=== PATIENT | female | born 1975 | race Caucasian/White ===

== ENCOUNTER 2024-10-13 07:30 | Emergency (ER) | payer MEDICAID ==
[~2024-10-13] VITALS: Ht 172.7 cm; Wt 80.7 kg
[2024-10-13] MEDS ORDERED: LOSA25TA27 PO (07:44)
[2024-10-13] MEDS ORDERED: ERGO500040 PO (07:44)
[2024-10-13 08:02] LABS: BASOPHILS % (AUTO) 1.1 % (0.0-2.0); EOSINOPHILS # (AUTO) 0.1 K/uL (0.0-0.7); EOSINOPHILS % (AUTO) 2.7 % (0.0-7.0); HEMATOCRIT 29.5 % (31.2-41.9); HEMOGLOBIN 9.5 g/dL (10.9-14.3); LYMPHOCYTES # (AUTO) 1.2 K/uL (0.8-4.8); LYMPHOCYTES % (AUTO) 34.8 % (20.5-51.5); MEAN CORPUSCULAR HEMOGLOBIN 24.4 uug (24.7-32.8); MEAN CORPUSCULAR HGB CONC 32 g/dL (32.3-35.6); MEAN CORPUSCULAR VOLUME 76.2 fL (75.5-95.3); MONOCYTES # (AUTO) 0.3 K/uL (0.1-1.30); MONOCYTES % (AUTO) 8.2 % (0.0-11.0); NEUTROPHILS # (AUTO) 1.9 K/uL (1.8-8.9); NEUTROPHILS % (AUTO) 53.2 % (38.5-71.5); PLATELET COUNT (AUTO) 216 K/uL (179-408); RED BLOOD CELL COUNT(AUTO) 3.88 MIL/uL (3.63-4.92); RED CELL DISTRIBUTION WIDTH 17.9 % (12.3-17.7); WHITE BLOOD COUNT (AUTO) 3.5 K/uL (3.8-11.8)
[2024-10-13 08:06] LABS: DIFFERENTIAL COMMENT 1
[2024-10-13 08:22] LABS: CALCIUM 8.9 mg/dL (8.5-10.1); CARBON DIOXIDE 23 mmol/L (21-32); CHLORIDE 105 mmol/L (98-107); CREATININE 0.6 mg/dL (0.6-1.3); GLUCOSE 95 mg/dL (74-106); POTASSIUM 3.9 mmol/L (3.5-5.1); SODIUM SERUM 140 mmol/L (136-145); UREA NITROGEN, BLOOD 16 mg/dL (7-18)
[2024-10-13 08:28] LABS: ALANINE AMINOTRANSFERASE 26 U/L (14-59); ALBUMIN 3.4 g/dL (3.4-5.0); ALKALINE PHOSPHATASE 63 U/L (50-136); ASPARTATE AMINOTRANSFERASE 15 U/L (15-37); BILIRUBIN,DIRECT < 0.1 mg/dL (0.0-0.2); BILIRUBIN,TOTAL 0.3 mg/dL (0.2-1.0)
[2024-10-13] MEDS ORDERED: FAMO40TA7 PO (09:09)
[2024-10-13 09:40] VITALS: BP 139/78; O2SAT 99
== END 2024-10-13 09:41 | disposition home or self-care (01) ==
LOC: ER 07:30
DX: R07.2 Precordial pain (principal); I10 Essential (primary) hypertension; Z79.899 Other long term (current) drug therapy
CPT/HCPCS: 36415; 71045; 84484; 85025; 85730; A4606; A4663

== ENCOUNTER 2024-11-01 15:17 | Inpatient (IN) | payer MEDICAID ==
[~2024-11-01] VITALS: Ht 167.6 cm; Wt 89.8 kg
[~2024-11-01 15:17] MED LIST: ERGO500040 PO; FAMO40TA7 PO; LOSA25TA27 PO
[2024-11-01 16:21] LABS: PLATELET COUNT (AUTO) 526 K/uL (179-408); RED BLOOD CELL COUNT(AUTO) 3.52 MIL/uL (3.63-4.92); RED CELL DISTRIBUTION WIDTH 17.5 % (12.3-17.7); WHITE BLOOD COUNT (AUTO) 14.8 K/uL (3.8-11.8)
[2024-11-01 16:37] LABS: ASPARTATE AMINOTRANSFERASE 16 U/L (15-37); CREATININE 0.6 mg/dL (0.6-1.3); SODIUM SERUM 141 mmol/L (136-145); TOTAL PROTEIN, SERUM 7.1 g/dL (6.4-8.2); UREA NITROGEN, BLOOD 7 mg/dL (7-18)
[2024-11-01] MEDS ORDERED: SWABABLE VALVE TRANSFER SET EA MC ONE (17:01)
[2024-11-01] MEDS ORDERED: IV NORMAL SALINE 250 ML IV ONE (17:01)
[2024-11-01] MEDS ORDERED: IOHEXOL 300MG/ML 100 ML INFUS..BTL ONE (17:01)
[2024-11-01 17:54] LABS: *BILIRUBIN,URIN NEGATIVE (NEGATIVE); *CLARITY,URINE CLEAR (CLEAR); *COLOR,URINE YELLOW (YELLOW); *KETONES,URINE NEGATIVE (NEGATIVE); *PROTEIN,URINE NEGATIVE (NEGATIVE); *UROBILINOGEN,URINE 0.2 E.U./dl (NORMAL); LEUKOCYTE ESTERASE ,URINE NEGATIVE (NEGATIVE); NITRITE, URINE NEGATIVE (NEGATIVE); UGLUCOSE NEGATIVE (NEGATIVE)
[2024-11-01 17:56] LABS: *BLOOD, URINE NEGATIVE (NEGATIVE)
[2024-11-01 18:41] LABS: *URINE HCG, QUAL NEGATIVE (NEGATIVE)
[2024-11-01] MEDS: KETOROLAC TROMETHAMINE 15 MG INJ IVP ONE (21:52)
[2024-11-01] MEDS ORDERED: TEMAZEPAM 15 MG CAPSULE PO PRN (22:15)
[2024-11-01] MEDS ORDERED: PIPERACILLIN/TAZOBACTAM/D5W 100 ML IV ONE (23:09)
[2024-11-01] MEDS ORDERED: IV 0.9% SODIUM CHLORID+ 20 KCL 1,000 ML ONE (23:09)
[2024-11-01] MEDS: PIPERACILLIN SODIUM/TAZOBACTAM 3.375 G in IV DEXTROSE 5% 50 ML IV SCH (23:58)
[2024-11-02] VITALS (10 sets, daily range): BP systolic 99–117; BP diastolic 45–67; TEMP 98.1–99.5; O2SAT 95–100
[2024-11-02] MEDS: POTASSIUM CHLORIDE 20 MEQ in IV NS 1000 ML 1,000 ML IV PRN
[2024-11-02] MEDS: HYDROCODONE/APAP 5-325MG TABLET PO PRN (00:03)
[2024-11-02] MEDS ORDERED: VANCOMYCIN IV 1,250 MG in IV DEXTROSE 5% 250 ML IV SCH (06:00)
[2024-11-02] MEDS: PANTOPRAZOLE SODIUM 40 MG TABLET.DR PO SCH (06:00)
[2024-11-02] MEDS ORDERED: VANCOMYCIN IV 2,000 MG in IV DEXTROSE 5% 500 ML IV ONE (08:00)
[2024-11-02] MEDS: VANCOMYCIN IV 1,000 MG in IV DEXTROSE 5% 250 ML IV SCH (09:03)
[2024-11-02 09:32] LABS: PLATELET COUNT (AUTO) 416 K/uL (179-408); RED BLOOD CELL COUNT(AUTO) 2.88 MIL/uL (3.63-4.92); RED CELL DISTRIBUTION WIDTH 16.8 % (12.3-17.7); WHITE BLOOD COUNT (AUTO) 10.4 K/uL (3.8-11.8)
[2024-11-02 09:45] LABS: ASPARTATE AMINOTRANSFERASE 10.0 U/L (15-37); CREATININE 0.6 mg/dL (0.6-1.3); SODIUM SERUM 139.0 mmol/L (136-145); TOTAL PROTEIN, SERUM 5.6 g/dL (6.4-8.2); UREA NITROGEN, BLOOD 6.0 mg/dL (7-18)
[2024-11-02 09:59] LABS: IRON, SERUM 16.0 ug/dL (50-175)
[2024-11-02] MEDS ORDERED: CEPH500C2 PO (12:08)
[2024-11-02] MEDS ORDERED: IBUP-1957 PO (12:09)
[2024-11-02] MEDS ORDERED: ASCO500T23 PO (12:10)
[2024-11-02] MEDS ORDERED: FAMO40TA7 PO (12:10)
[2024-11-02] MEDS ORDERED: CYAN-51 PO (12:12)
[2024-11-02] MEDS ORDERED: MULT-1275 PO (12:13)
[2024-11-02] MEDS: ACETAMINOPHEN 325 MG TABLET PO PRN (15:41)
[2024-11-02] MEDS: PIPERACILLIN SODIUM/TAZOBACTAM 3.375 G in IV DEXTROSE 5% 50 ML IV SCH (22:31)
[2024-11-03 06:05] VITALS: BP 105/65; TEMP 97.9; O2SAT 98
[2024-11-03 08:55] LABS: PLATELET COUNT (AUTO) 518 K/uL (179-408); RED BLOOD CELL COUNT(AUTO) 3.47 MIL/uL (3.63-4.92); RED CELL DISTRIBUTION WIDTH 17.7 % (12.3-17.7); WHITE BLOOD COUNT (AUTO) 9.3 K/uL (3.8-11.8)
[2024-11-03 09:08] LABS: CREATININE 0.6 mg/dL (0.6-1.3); SODIUM SERUM 142.0 mmol/L (136-145); UREA NITROGEN, BLOOD 6.0 mg/dL (7-18)
[2024-11-03 11:16] VITALS: BP 112/69; TEMP 98.8; O2SAT 98
[2024-11-03] MEDS: PIPERACILLIN SODIUM/TAZOBACTAM 3.375 G in IV DEXTROSE 5% 50 ML IV SCH (12:09)
[2024-11-03 20:10] VITALS: BP 129/69; TEMP 98.5; O2SAT 96
[2024-11-04 04:00] VITALS: BP 112/68; TEMP 97.9; O2SAT 96
[2024-11-04 06:57] LABS: PLATELET COUNT (AUTO) 448 K/uL (179-408); RED BLOOD CELL COUNT(AUTO) 3.16 MIL/uL (3.63-4.92); RED CELL DISTRIBUTION WIDTH 18.1 % (12.3-17.7); WHITE BLOOD COUNT (AUTO) 7.3 K/uL (3.8-11.8)
[2024-11-04 07:14] LABS: CREATININE 0.6 mg/dL (0.6-1.3); SODIUM SERUM 140.0 mmol/L (136-145); UREA NITROGEN, BLOOD 6.0 mg/dL (7-18)
[2024-11-04] MEDS: ENSURE ENLIVE (VAN) 240 ML LIQUID PO SCH (09:11)
[2024-11-04 11:37] VITALS: BP 110/73; TEMP 98.6; O2SAT 98
[2024-11-04 15:50] VITALS: BP 121/76; TEMP 97.9; O2SAT 98
[2024-11-04 19:58] VITALS: BP 121/80; TEMP 98; O2SAT 98
[2024-11-04] MEDS: ONDANSETRON 4 MG/2 ML VIAL IV PRN (20:16)
[2024-11-05 05:07] VITALS: BP 132/75; TEMP 98.3; O2SAT 98
[2024-11-05 06:41] LABS: PLATELET COUNT (AUTO) 450 K/uL (179-408); RED BLOOD CELL COUNT(AUTO) 3.06 MIL/uL (3.63-4.92); RED CELL DISTRIBUTION WIDTH 18.1 % (12.3-17.7); WHITE BLOOD COUNT (AUTO) 7.2 K/uL (3.8-11.8)
[2024-11-05 11:21] VITALS: BP 136/85; TEMP 98.3; O2SAT 98
[2024-11-05 15:45] VITALS: BP 149/84; TEMP 98.7; O2SAT 99
== END 2024-11-05 18:10 | disposition home or self-care (01) | DRG 721 ==
LOC: ER 15:17 → MEDSURG1 21:12 → MEDSURG3 11-02 08:40
PROVIDERS: ADMIT Internal Medicine; ATTEND Registered Nurse Psychiatric/Mental Health
PROC: 30233N1 Transfusion of Nonautologous Red Blood Cells into Peripheral Vein, Percutaneous Approach (ICD-10-PCS; principal; 2024-11-02)
PROC: 05HF33Z Insertion of Infusion Device into Left Cephalic Vein, Percutaneous Approach (ICD-10-PCS; 2024-11-03)
DX: T81.41XA Infection following a procedure, superficial incisional surgical site, initial encounter (principal); A41.9 Sepsis, unspecified organism; D68.59 Other primary thrombophilia; E44.0 Moderate protein-calorie malnutrition; T81.44XA Sepsis following a procedure, initial encounter; D62 Acute posthemorrhagic anemia; E83.51 Hypocalcemia; E88.09 Other disorders of plasma-protein metabolism, not elsewhere classified; L03.311 Cellulitis of abdominal wall; D75.839 Thrombocytosis, unspecified; E87.6 Hypokalemia; I10 Essential (primary) hypertension; N83.202 Unspecified ovarian cyst, left side; Z68.32 Body mass index [BMI] 32.0-32.9, adult
CPT/HCPCS: 36415; 83550; 83605; 83735; 84100; 84484; 84703; 85025; 85651; 85730; 86850; 86900; 86901; 86920; 87040; 87086; A4606; A4663; G0378; J1885; J2405; J2543; J3370; J3480; J7040; J7050; J7060; P9016; Q9967